=== PATIENT | female | born 1960 | race Caucasian/White ===

== ENCOUNTER 2018-04-23 08:38 | Outpatient (CLI) | payer OTHER ==
--- NOTE | 2018-04-23 11:45 | CT ---
CT CHEST WITHOUT CONTRAST PULMONARY LUNG SCREENING: Date: 04/23/18 HISTORY: Nicotine dependence. COMPARISON: None. FINDINGS: Lung screening specific (Lung-RADS): Negative. There are no suspicious pulmonary nodules requiring f ollow-up or additional evaluation per Lung-RADS criteria. Potentially significant incidentals (Lung-RADS Category S): Negative. Pulmonary incidentals: There is a small, sub-3 mm, pleural based nodule right middle lobe, axial emilio ge 153 of series 2. Sternum and manubrium are intact. The thoracic spine is intact. No displaced rib fracture. Limited evaluation of the upper abdomen is unremarkable. IMPRESSION: 1. Lung-RADS Category 2: Benign appearance or behavior. Recommend follow-up CT of the chest low dos e screening in 12 months. 2. Lung-RADS Category S: Negative. No new or unknown potentially significant findings requiring urg ent additional evaluation. POS: [facility]
== END 2018-04-23 08:39 | disposition home or self-care (01) ==
LOC: BICMAMMO 08:38 → CT 08:39
PROVIDERS: ATTEND Family Medicine
DX: Z12.2 Encounter for screening for malignant neoplasm of respiratory organs (principal); F17.210 Nicotine dependence, cigarettes, uncomplicated; R92.1 Mammographic calcification found on diagnostic imaging of breast
CPT/HCPCS: 77063; 77067; G0297

== ENCOUNTER 2018-11-15 20:15 | Emergency (ER) | payer OTHER ==
[2018-11-15] MEDS ORDERED: Dexamethasone 4 mg/ml Vial ONE (21:17)
[2018-11-15] MEDS ORDERED: Ketorolac Tromethamine 30 MG/ML VIAL ONE (21:17)
== END 2018-11-15 21:30 | disposition home or self-care (01) ==
LOC: ERS 20:15
DX: M54.16 Radiculopathy, lumbar region (principal)
CPT/HCPCS: 96372; 99283; J1100; J1885

== ENCOUNTER 2019-06-08 07:45 | Outpatient (CLI) | payer BC ==
--- NOTE | 2019-06-08 09:10 | CT ---
CT CHEST WITHOUT CONTRAST: Multiple axial tomograms obtained with multiplanar reconstruction. A low-dose screening protocol was followed. INDICATION: Long-term tobacco use. Cough. COMPARISON: Comparison is made to prior low-dose screening CT performed 04/23/2018. FINDINGS: The small 3 mm pleural-based nodule peripheral right middle lobe is again seen and is stable. No oth er evidence of pulmonary nodule. No mass or effusion. No infiltrate. Mediastinum unremarkable. Im ages through the upper abdomen unremarkable. IMPRESSION: Lung RADS 2. Recommend continued annual low-dose screening CT. POS: [facility]
== END 2019-06-08 07:46 | disposition home or self-care (01) ==
LOC: CT 07:45
PROVIDERS: ATTEND Family Medicine
DX: Z12.2 Encounter for screening for malignant neoplasm of respiratory organs (principal); F17.210 Nicotine dependence, cigarettes, uncomplicated
CPT/HCPCS: G0297

== ENCOUNTER 2019-08-03 09:21 | Outpatient (CLI) | payer BC ==
--- NOTE | 2019-08-03 10:04 | MMO ---
Bilateral MAMMO Bilat Screen [facility]. CLINICAL HISTORY: Patient is 58 years old and is seen for screening. The patient has no family history of breast cancer. The patient has no personal history of cancer. VIEWS: The views performed were: bilateral craniocaudal with tomosynthesis and bilateral mediolateral oblique with tomosynthesis. FILMS COMPARED: The present examination has been compared to prior imaging studies performed at [facility] on 04/23/2018, and at [facility] on 03/24/2012, 06/01/2015 and 10/28/2016. This study has been interpreted with the assistance of computer-aided detection. MAMMOGRAM FINDINGS: There are scattered fibroglandular densities. Benign calcifications are noted bilaterally. There are no suspicious masses, suspicious calcifications, or new areas of architectural distortion. IMPRESSION: THERE IS NO MAMMOGRAPHIC EVIDENCE OF MALIGNANCY. A ROUTINE FOLLOW-UP MAMMOGRAM IN 1 YEAR IS RECOMMENDED. THE RESULTS OF THIS EXAM WERE SENT TO THE PATIENT. ACR BI-RADS Category 2 - Benign finding MAMMOGRAPHY NOTE: 1. A negative mammogram report should not delay a biopsy if a dominant of clinically suspicious mass is present. 2. Approximately 10% to 15% of breast cancers are not detected by mammography. 3. Adenosis and dense breasts may obscure an underlying neoplasm. Reported by: ENRIQUE RODRIGUEZ MD Electonically Signed: [id number]
== END 2019-08-03 09:22 | disposition home or self-care (01) ==
LOC: BICMAMMO 09:21
PROVIDERS: ATTEND Family Medicine
DX: Z12.31 Encounter for screening mammogram for malignant neoplasm of breast (principal)
CPT/HCPCS: 77063; 77067

== ENCOUNTER 2019-09-04 11:34 | Emergency (ER) | payer BC ==
[2019-09-04] MEDS ORDERED: Ketorolac Tromethamine 30 MG/ML VIAL ONE (11:57)
--- NOTE | 2019-09-04 12:17 | RAD ---
EXAM: 2 views of the right hip HISTORY: Right hip pain COMPARISON: None FINDINGS: 2 views of the right hip shows no evidence of acute fracture or dislocation. No degenerativ e changes are seen. No soft tissue swelling is present. IMPRESSION: No evidence of acute osseous abnormality.
--- NOTE | 2019-09-04 12:17 | RAD ---
EXAM: 3 views of the lumbosacral spine HISTORY: Low back pain and right hip pain COMPARISON: None FINDINGS: 3 views of the lumbosacral spine shows normal height and alignment of the vertebral bodies and intervertebral discs without fracture or subluxation. Very small osteophytes are seen along the inferior endplate of L2. The sacroiliac joints are unremarkable. IMPRESSION: Mild degenerative changes without acute osseous abnormality
== END 2019-09-04 12:54 | disposition home or self-care (01) ==
LOC: ERS 11:34
DX: M54.16 Radiculopathy, lumbar region (principal); F41.9 Anxiety disorder, unspecified; Z87.891 Personal history of nicotine dependence; Z79.899 Other long term (current) drug therapy
CPT/HCPCS: 72100; 96372; J1885

== ENCOUNTER 2019-09-27 04:37 | Outpatient (CLI) | payer BC, OTHER ==
[2019-09-27 10:27] LABS: Hemoglobin 14.2 g/dL (12.0-16.0); Mean Corpuscular HGB CONC 32.3 g/dL (32.0-36.0); Mean Corpuscular Hemoglobin 32.3 pg (27.0-31.0); Mean Platelet Volume 8.4 fL (7.4-10.4); Platelet Count 392 thou/uL (130-400); RBC Distribution Width 11.6 % (11.5-14.5); Red Blood Cell (RBC) Count 4.38 mill/uL (4.20-5.40); White Blood Cell (WBC) Count 6.2 thou/uL (4.8-10.8)
[2019-09-27 10:35] LABS: INR-International Normal Ratio 0.9; PTT 30.6 sec (22.9-36.1); Prothrombin Time 12.1 sec (12.0-14.7)
[2019-09-27 11:30] LABS: Anion Gap 15 mmol/L (10-20); BUN (Urea Nitrogen) 18 mg/dL (9.8-20.1); Calc. Creatinine Clearance 0 mL/min (70-130); Carbon Dioxide 23 mmol/L (22-29); Chloride 102 mmol/L (98-107); Estimated GFR-MDRD 54; Glucose 97 mg/dL (70-105); Potassium 4.8 mmol/L (3.5-5.1); Sodium 135 mmol/L (136-145)
[2019-09-28 14:02] LABS: SARS-CoV-2 MS2 Positive; SARS-CoV-2 N Gene Negative; SARS-CoV-2 S Gene Negative; SARS-CoV-2 orf1ab Negative
== END 2019-09-27 04:38 | disposition home or self-care (01) ==
LOC: LABBT 04:37
PROVIDERS: ATTEND Surgery
DX: Z01.818 Encounter for other preprocedural examination (principal); Z11.59 Encounter for screening for other viral diseases; M51.16 Intervertebral disc disorders with radiculopathy, lumbar region
CPT/HCPCS: 80048; 85027; 85610; 85730; 87635; 93005; 93010; U0003

== ENCOUNTER 2019-09-30 11:25 | Day surgery (SDC) | payer BC ==
[2019-09-27 10:40] VITALS: BMI 29.0
[2019-09-30] MEDS ORDERED: Lidocaine 1% PF 5 ML VIAL ONE (12:17)
[2019-09-30] MEDS ORDERED: PROPOFOL 200 MG/20 ML VIAL ONE (12:17)
[2019-09-30] MEDS ORDERED: Glycopyrrolate 0.2 MG/ML 5 ML SYRINGE ONE (12:17)
[2019-09-30] MEDS ORDERED: Rocuronium Bromide 10 MG/ML (10ML VIAL) ONE (12:17)
[2019-09-30] MEDS ORDERED: Ondansetron PF 4 MG/2 ML Vial ONE (12:17)
[2019-09-30] MEDS ORDERED: Dexamethasone 20 MG/5 ML VIAL ONE (12:17)
[2019-09-30] MEDS ORDERED: Midazolam HCl 2 mg/2 ml Vial ONE ×2 (12:30→15:24)
[2019-09-30] MEDS ORDERED: Thrombin 5000 UNITS/5 ML VIAL ONE (13:26)
[2019-09-30] MEDS ORDERED: Fentanyl 100 MCG/2 ML VIAL ONE ×4 (13:29→16:53)
--- NOTE | 2019-09-30 14:10 | OP ---
DATE OF PROCEDURE: 09/30/2019 OR: 12. JEWELRY MECHANIC: Tresa Levine PA-C. PREPROCEDURE DIAGNOSIS: Low back and right greater the left lower extremity pain. POSTPROCEDURE DIAGNOSIS: Low back and right greater the left lower extremity pain. PROCEDURE PERFORMED: 1. L5-S1 laminectomy, partial facetectomy, foraminotomy. 2. Right L5-S1 trans-facet diskectomy for decompression of the exiting right L5 nerve root. 3. Use of operative microscope for microdissection. DESCRIPTION OF PROCEDURE: After informed consent was obtained from the patient, the patient was brought to the OR. Proper patient, pause, and identification were carried out. Sterile cleansing, preparation, and draping of the L5-S1 segment was performed. This area was sterilely cleansed, prepared and draped. Proper patient, pause, and identification were carried out. The wound was then opened with a combination of sharp, monopolar, and blunt dissection. The L5-S1 dorsal spines and lamina were exposed. Localization film confirmed our area of interest. We then performed L5-S1 laminectomy, partial facetectomy, foraminotomy. We then brought the microscope in for microdissection and a right L5-S1 trans-facet diskectomy was performed with decompression of the exiting right L5 nerve root. We had excellent decompression. Copious irrigation occurred throughout as did maximizing hemostasis. The wound was then closed in anatomic layers following sprinkling of vancomycin powder. Job ID: [id number]
[2019-09-30] MEDS ORDERED: Milk Of Magnesia 30 ML UDCUP PO PRN (15:27)
[2019-09-30] MEDS ORDERED: Mag-Al 1200 mg/1200 mg/30 ML UDCUP PO PRN (15:27)
[2019-09-30] MEDS ORDERED: Bisacodyl 10 MG SUPP PR PRN (15:27)
[2019-09-30] MEDS ORDERED: Acetaminophen 325 MG TAB PO PRN (15:27)
[2019-09-30] MEDS ORDERED: Ondansetron PF 4 MG/2 ML Vial IVP PRN (15:27)
[2019-09-30] MEDS ORDERED: Morphine 2 MG/ML VIAL SLOW IVP PRN (15:27)
[2019-09-30] MEDS ORDERED: Fleet Enema 133 ML BOT PR PRN (15:27)
[2019-09-30] MEDS ORDERED: diphenhydrAMINE 25 MG CAP PO PRN (15:27)
[2019-09-30] MEDS ORDERED: traMADol HCl 50 MG TAB PO PRN (15:27)
[2019-09-30] MEDS ORDERED: Acetaminophen/Codeine 30-300mg Tablet PO PRN (15:27)
[2019-09-30] MEDS ORDERED: Lorazepam 0.5 MG TAB PO PRN (15:29)
[2019-09-30] MEDS: Sodium Chloride 0.9% 1,000 ML IV SCH (18:04)
[2019-09-30] MEDS: HYDROcodone/Acetaminophen 7.5/325 mg Tablet PO PRN (20:17)
[2019-09-30] MEDS: tiZANidine HCl 4 MG TAB PO PRN (20:18)
[2019-09-30] MEDS: CEFAZOLIN 2 GM in Premix Bag 1 BAG IVPB SCH (20:24)
[2019-09-30] MEDS ORDERED: traZODone HCl 50 MG TAB PO SCH (21:00)
[2019-10-01] MEDS: HYDROcodone/Acetaminophen 7.5/325 mg Tablet PO PRN ×2 (04:40→08:09)
[2019-10-01] MEDS: CEFAZOLIN 2 GM in Premix Bag 1 BAG IVPB SCH (04:41)
[2019-10-01] MEDS: tiZANidine HCl 4 MG TAB PO PRN (04:41)
[2019-10-01] MEDS: Sodium Chloride 0.9% 1,000 ML IV SCH (06:38)
[2019-10-01 08:10] VITALS: BP 94/54; TEMP 97.7
[2019-10-01] MEDS ORDERED: Estrogens, Conjugated 0.3 MG TAB PO SCH (09:00)
[2019-10-01] MEDS ORDERED: Bupropion 150 MG XL TAB PO SCH (09:00)
--- NOTE | 2019-10-01 10:41 | PRG ---
DATE OF SERVICE: 10/01/2019 Ms. Castellano is doing well, postoperative day 1. She has significant improvement in her low back and right lower extremity pain. She has some right hip pain and incisional pain, but again significant improvement. She has good strength in her lower extremity. She has met criteria for discharge. We will discharge her. Job ID: [id number]
--- NOTE | 2019-10-01 13:14 | OP ---
DATE OF PROCEDURE: 09/30/2019 SURGEON: Ramon Wilson MD SEED TRUCKER: Tresa Levine PA-C PREPROCEDURE DIAGNOSES: Low back and right leg pain, lumbar disk extrusion. POSTPROCEDURE DIAGNOSES: Low back and right leg pain, lumbar disk extrusion. PROCEDURES PERFORMED: 1. L5-S1 hemilaminotomy, foraminotomy, and diskectomy. 2. Use of operating microscope for microdissection. DESCRIPTION OF PROCEDURE: After informed consent was obtained from the patient, the patient was brought to the OR. Proper patient, pause, and identification were carried out. She was placed under excellent general endotracheal anesthesia and positioned prone on the OR table. All appropriate points were padded. We identified the L5-S1 dorsal spine. A linear indy was made over this region. This area was sterilely cleansed, prepared, and draped. Proper patient, pause, and identification were carried out. The wound was then opened with a combination of sharp, monopolar, and blunt dissection. The right L5-S1 segment was subperiosteally dissected. Localization film confirmed area of interest. We then performed a right L5-S1 hemilaminotomy, foraminotomy, and diskectomy with the use of the operating microscope for microdissection. Two large disk fragments were removed. We had excellent decompression of the traversing right S1 nerve root and the right L5 nerve root, freedom was assured. Copious irrigation occurred throughout as did maximizing hemostasis. The wound was then closed in anatomic layers following sprinkling of vancomycin powder. The patient emerged from anesthesia. Job ID: [id number]
== END 2019-10-01 08:46 | disposition home or self-care (01) ==
LOC: SDC 11:25 → 3SE 15:27 → SDC 10-01 08:46
PROVIDERS: ATTEND Surgery
PROC: 01NB0ZZ Release Lumbar Nerve, Open Approach (ICD-10-PCS; principal; 2019-09-30)
PROC: 0SB20ZZ Excision of Lumbar Vertebral Disc, Open Approach (ICD-10-PCS; principal; 2019-09-30)
DX: M51.16 Intervertebral disc disorders with radiculopathy, lumbar region (principal); Z79.899 Other long term (current) drug therapy
CPT/HCPCS: 76000; J0690; J1100; J2250; J2270; J2405; J2704; J3010; J3370

== ENCOUNTER 2020-06-19 09:38 | Outpatient (CLI) | payer BC | END 2020-06-19 09:39 | disposition home or self-care (01) | LOC: BICCT 09:38 | PROVIDERS: ATTEND Family Medicine | DX: Z12.2 Encounter for screening for malignant neoplasm of respiratory organs (principal); F17.210 Nicotine dependence, cigarettes, uncomplicated; R59.0 Localized enlarged lymph nodes | CPT/HCPCS: 71271 ==

== ENCOUNTER 2020-08-02 08:51 | Outpatient (CLI) | payer BC | END 2020-08-02 08:52 | disposition home or self-care (01) | LOC: BICMAMMO 08:51 | PROVIDERS: ATTEND Family Medicine | DX: Z12.31 Encounter for screening mammogram for malignant neoplasm of breast (principal) | CPT/HCPCS: 77063; 77067 ==

== ENCOUNTER 2021-08-16 11:09 | Outpatient (CLI) | payer BC | END 2021-08-16 11:10 | disposition home or self-care (01) | LOC: BICCT 11:09 | PROVIDERS: ATTEND Family Medicine | DX: Z12.31 Encounter for screening mammogram for malignant neoplasm of breast (principal); Z12.2 Encounter for screening for malignant neoplasm of respiratory organs; Z13.820 Encounter for screening for osteoporosis; F17.210 Nicotine dependence, cigarettes, uncomplicated; M85.88 Other specified disorders of bone density and structure, other site; R91.1 Solitary pulmonary nodule | CPT/HCPCS: 71271; 77063; 77067; 77080 ==

== ENCOUNTER 2022-02-17 05:53 | Emergency (ER) | payer BC | END 2022-02-17 07:17 | disposition left against medical advice (07) | LOC: ERS 05:53 | DX: Z53.21 Procedure and treatment not carried out due to patient leaving prior to being seen by health care provider (principal) ==

== ENCOUNTER 2023-02-21 13:02 | Outpatient (CLI) | payer BC | END 2023-02-21 13:03 | disposition home or self-care (01) | LOC: BICMAMMO 13:02 | PROVIDERS: ATTEND Family Medicine | DX: N63.13 Unspecified lump in the right breast, lower outer quadrant (principal) | CPT/HCPCS: G0279 ==

== ENCOUNTER 2023-12-24 12:50 | Outpatient (CLI) | payer BC | END 2023-12-24 12:51 | disposition home or self-care (01) | LOC: BICCT 12:50 | PROVIDERS: ATTEND Family Medicine | DX: Z12.2 Encounter for screening for malignant neoplasm of respiratory organs (principal); F17.210 Nicotine dependence, cigarettes, uncomplicated | CPT/HCPCS: 71271 ==

== ENCOUNTER 2025-02-14 07:53 | Outpatient (CLI) | payer BC | END 2025-02-14 07:54 | disposition home or self-care (01) | LOC: BICMAMMO 07:53 | PROVIDERS: ATTEND Family Medicine | DX: Z12.31 Encounter for screening mammogram for malignant neoplasm of breast (principal); Z12.2 Encounter for screening for malignant neoplasm of respiratory organs; Z78.0 Asymptomatic menopausal state; F17.210 Nicotine dependence, cigarettes, uncomplicated; M85.88 Other specified disorders of bone density and structure, other site; K76.89 Other specified diseases of liver | CPT/HCPCS: 71271; 77063; 77067; 77080 ==